=== PATIENT | female | born 1955 | race Caucasian/White ===

== ENCOUNTER 2016-08-02 18:08 | Emergency (ER) | payer OTHER ==
[2016-08-02 18:22] VITALS: PULSE 82; RESP 16; TEMP 97.9; O2SAT 96
[2016-08-02 18:23] VITALS: BP 163/89
--- NOTE | 2016-08-02 18:35 | UCPHY ---
H & P Time Seen by Provider: 08/02/16 18:25 Patient Type: New HPI/ROS: CHIEF COMPLAINT: Swollen tongue, sore throat, headache. HISTORY OF PRESENT ILLNESS: The patient is a 61-year-old female who presents with tongue swelling for the past 3 days. Her symptoms began with a burning sensation in her tongue. She admits associated sore throat, dry cough, cervical lymphadenopathy, and headache. She denies sores, blisters, fever, shortness of breath, diarrhea, vomiting, difficulty breathing or swallowing, or other complaints. She arrived from [place] on Thursday. She also notes that [place] in full-blown he has had a lot of symptomatology related to the pollen think covering the cars and rhinorrhea and scratchy eyes. REVIEW OF SYSTEMS: Constitutional: No fever, no chills. Eyes: No Discharge ENT: As above. Respiratory: As above. Skin: No rashes. Neurological: No headache. Past Medical/Surgical History: Cholecystectomy, tonsillectomy, hypothyroidism, ADD. Social History: Smoker, from [place]. Smoking Status: Current every day smoker Physical Exam: General Appearance: Alert, no distress. Afebrile. Normal phonation. No respiratory distress. Eyes: Pupils equal and round no pallor or injection. No icterus ENT, Mouth: Mucous membranes moist. Pharynx not erythematous and without exudate. TM Clear. Maxillary sinus tenderness, bilateral. Neck: No adenopathy. Supple. No JVD. Trachea in midline. Skin: Warm and dry, no rashes. Musculoskeletal: No joint swelling. Extremities: No edema. Psychiatric: normal affect Constitutional: Initial Vital Signs Temperature (C) 36.6 C 08/02/16 18:17 Heart Rate 82 08/02/16 18:17 Respiratory Rate 16 08/02/16 18:17 Blood Pressure 163/89 H 08/02/16 18:17 O2 Sat (%) 96 08/02/16 18:17 O2 Delivery Mode Room Air Allergies/Adverse Reactions: iopamidol [From Isovue-M] Allergy (Intermediate, Verified 08/02/16 18:20) Hives Home Medications: Medication Instructions Recorded Adderall 10 MG (*) 08/02/16 Cefpodoxime Proxetil [Vantin] 200 mg PO BID #20 tab 08/02/16 Levothyroxine Sodium 08/02/16 Medical Decision Making ED Course/Re-evaluation: A strep swab was obtained and is negative. She clinically has a syndrome compatible with acute sinusitis with a prodrome related to her allergy problems back in [place] Differential Diagnosis: Diagnostic considerations include, but are not limited to, the following: URI, sinusitis, pharyngitis, otitis media, pneumonia, allergy. - Data Points Medications Given: Discontinued Medications Cefdinir (Omnicef) 300 mg PO EDNOW ONE PRN Reason: Protocol Stop: 08/02/16 19:36 Last Admin: 08/02/16 19:50 Dose: 300 mg Departure - Departure Disposition: Home, Routine, Self-Care Clinical Impression: Sinusitis Qualifiers: Sinusitis location: maxillary Chronicity: acute Recurrence: non-recurrent Qualified Code(s): J01.00 - Acute maxillary sinusitis, unspecified Condition: Good Instructions: Cefdinir (By mouth), Sinusitis (ED) Additional Instructions: Take the antibiotic as prescribed. Drink plenty of fluids and be sure to get rest. Return to Urgent Care for any serious worsening of condition. Referrals: NONE *PRIMARY CARE P,. [Primary Care Provider] - As per Instructions Prescriptions: Cefpodoxime Proxetil [Vantin] 200 mg PO BID #20 tab - PQRS PQRS Measurement: not applicable Report Scribed for: Stanley Asencio Report Scribed by: Matthieu Wallace Date of Report: 08/02/16 Time of Report: 18:32 Physician Review and Approval Statement: 08/02/16 18:32 Portions of this note were transcribed by a medical interpreter. I personally performed a history, physical exam, medical decision making, and confirmed accuracy of information the transcribed note.
[2016-08-02] MEDS ORDERED: CEFDINIR 300 MG CAP PO ONE (19:35)
[2016-08-02] MEDS ORDERED: CEFDINIR 125MG/5ML PREPACK BTL TAKEHOME ONE (19:38)
== END 2016-08-02 19:53 | disposition home or self-care (01) ==
LOC: CED 18:08
DX: J01.00 Acute maxillary sinusitis, unspecified (principal); F17.200 Nicotine dependence, unspecified, uncomplicated
CPT/HCPCS: 87880-PO; 99203-PO; G0463-PO